=== PATIENT | male | born 1960 | race Two or more races ===

== ENCOUNTER 2021-07-05 11:29 | Emergency (ER) | payer MEDICAID, OTHER ==
[~2021-07-05] VITALS: Ht 182.9 cm; Wt 98.9 kg
[2021-07-05 11:30] VITALS: BP 125/95
[2021-07-05] MEDS ORDERED: IBUP800T27 PO ×2 (12:33→12:49)
[2021-07-05] MEDS ORDERED: CEPH-509 PO ×2 (12:33→12:49)
== END 2021-07-05 12:52 | disposition home or self-care (01) ==
LOC: ER 11:29
DX: S80.262A Insect bite (nonvenomous), left knee, initial encounter (principal); I10 Essential (primary) hypertension; E78.5 Hyperlipidemia, unspecified; Z79.1 Long term (current) use of non-steroidal anti-inflammatories (NSAID); Z79.899 Other long term (current) drug therapy; W57.XXXA Bitten or stung by nonvenomous insect and other nonvenomous arthropods, initial encounter; Y93.89 Activity, other specified; Y92.89 Other specified places as the place of occurrence of the external cause; Y99.8 Other external cause status
CPT/HCPCS: 73562

== ENCOUNTER 2021-08-30 15:58 | Inpatient (IN) | payer MEDICAID ==
[~2021-08-30] VITALS: Ht 182.9 cm; Wt 99.3 kg
[~2021-08-30 15:58] MED LIST: CEPH-509 PO; IBUP800T27 PO
[2021-08-30 16:31] LABS: Urine Bacteria NONE SEEN /hpf (None Seen); Urine Blood Negative /uL (Negative); Urine Hyaline Cast FEW /lpf (0 - 2); Urine Mucus FEW (None Seen); Urine Specific Gravity 1.025 (1.001-1.035); Urine WBC 2 /hpf (0 - 3)
[2021-08-30 16:47] LABS: Basophils # (auto) 0.1 10 ^3/uL (0-0.2); Eosinophils # (auto) 0.1 10 ^3/uL (0-0.8); Eosinophils % (auto) 1.1 % (0.0-7.0); Hemoglobin 14.7 g/dL (13.5-17.5); Lymphocytes # (auto) 1.2 10 ^3/uL (0.4-5.4); Lymphocytes % (auto) 17.6 % (10.0-50.0); Mean Corpuscular Hgb Conc. 32.6 g/dL (32.0-36.0); Mean Corpuscular Volume 92.1 fL (80.0-100.0); Monocytes # (auto) 0.4 10 ^3/uL (0-1.3); Monocytes % (auto) 6.4 % (0.0-12.0); Neutrophils # (auto) 5.1 10 ^3/uL (1.6-8.6); Neutrophils % (auto) 73.9 % (37.0-80.0); Red Blood Cells 4.89 10^6/uL (4.5-5.90); Red Cell Distribution Width 13.6 % (11.8-14.3); White Blood Cell 6.8 10^3/uL (4.4-10.8)
[2021-08-30] MEDS ORDERED: dilTIAZem 25 MG/5 ML VIAL IV ONE (17:00)
[2021-08-30] MEDS ORDERED: dilTIAZem 125mg/125ml BAG KIT 125 ML IV ONE (17:00)
[2021-08-30 17:03] LABS: BUN/Creatinine Ratio 15.5; Calcium 8.6 mg/dL (8.5-10.1)
[2021-08-30 17:06] LABS: Bilirubin, Total 1.5 mg/dL (0.2-1.0); Total Protein 6.7 g/dL (6.4-8.2)
[2021-08-30] MEDS ORDERED: dilTIAZem HCL 50 MG/10 ML VIAL IV ONE (17:15)
[2021-08-30] MEDS ORDERED: ONDANSETRON HCL 4 MG/2 ML VIAL IV PRN (18:30)
[2021-08-30] MEDS ORDERED: HYDROcodone-ACET 5/325MG TAB PO PRN (18:30)
[2021-08-30] MEDS ORDERED: MORPHINE SULFATE INJ 2 MG/ml SYRG IV PRN (18:30)
[2021-08-31] MEDS ORDERED: cloNIDine HCL 0.1 MG TAB PO ONE (00:15)
[2021-08-31 05:16] LABS: Basophils # (auto) 0 10 ^3/uL (0-0.2); Basophils % (auto) 0.4 % (0.0-2.0); Eosinophils # (auto) 0.1 10 ^3/uL (0-0.8); Eosinophils % (auto) 1.6 % (0.0-7.0); Hematocrit 41.1 % (41.0-53.0); Hemoglobin 13.7 g/dL (13.5-17.5); Lymphocytes # (auto) 1.4 10 ^3/uL (0.4-5.4); Lymphocytes % (auto) 20.5 % (10.0-50.0); Mean Corpuscular Hemoglobin 30.3 pg (28.0-32.0); Mean Corpuscular Hgb Conc. 33.2 g/dL (32.0-36.0); Mean Corpuscular Volume 91.2 fL (80.0-100.0); Monocytes # (auto) 0.5 10 ^3/uL (0-1.3); Monocytes % (auto) 7.7 % (0.0-12.0); Neutrophils # (auto) 4.9 10 ^3/uL (1.6-8.6); Neutrophils % (auto) 69.8 % (37.0-80.0); Nucleated Red Blood Cells % 0.1 %; Red Blood Cells 4.51 10^6/uL (4.5-5.90); Red Cell Distribution Width 13.5 % (11.8-14.3)
[2021-08-31 05:34] LABS: Albumin 3.5 g/dL (3.4-5.0); Calcium 8.4 mg/dL (8.5-10.1); Potassium 4.5 mmol/L (3.5-5.1)
[2021-08-31 05:40] LABS: BUN/Creatinine Ratio 15.6; Bilirubin, Total 1.3 mg/dL (0.2-1.0); Total Protein 6.1 g/dL (6.4-8.2)
[2021-08-31] MEDS ORDERED: dilTIAZem 25 MG/5 ML VIAL IV ONE (06:30)
[2021-08-31] MEDS ORDERED: FUROSEMIDE 40 MG/4 ML VIAL IV SCH ×2 (10:00→18:00)
[2021-08-31] MEDS ORDERED: CARVEDILOL 3.125 MG TAB PO SCH ×2 (10:00→15:45)
[2021-08-31] MEDS ORDERED: ENOXAPARIN SOD 40 MG/0.4 ML SYRINGE SC SCH (10:00)
[2021-08-31] MEDS ORDERED: AMIODARONE HCL 200 MG TAB PO SCH (10:00)
[2021-08-31] MEDS ORDERED: ATOR40TA52 PO (11:54)
[2021-08-31] MEDS ORDERED: CARV3.1240 PO (11:54)
[2021-08-31] MEDS ORDERED: TAMS1CAP25 PO (11:54)
[2021-08-31 12:34] VITALS: BP 127/96
[2021-08-31] MEDS ORDERED: CARVEDILOL 12.5 MG TAB PO ONE (16:00)
[2021-08-31] MEDS: TAMSULOSIN HYDROCHLORIDE 0.4 MG CAP PO SCH (17:56)
[2021-08-31 20:00] VITALS: BP 119/77
[2021-08-31] MEDS: AMIODARONE HCL 200 MG TAB PO SCH (21:20)
[2021-08-31] MEDS: APIXABAN 5 MG TAB PO SCH (21:20)
[2021-08-31 22:00] VITALS: BP 119/77
[2021-08-31] MEDS ORDERED: CARVEDILOL 12.5 MG TAB PO SCH (22:00)
[2021-08-31] MEDS ORDERED: ENOXAPARIN SOD 100 MG/1 ML SYRINGE SC SCH (22:00)
[2021-09-01 05:30] VITALS: BP 103/73
[2021-09-01] MEDS: FUROSEMIDE 40 MG/4 ML VIAL IV SCH ×2 (05:37→18:18)
[2021-09-01 09:00] VITALS: BP 106/81
[2021-09-01] MEDS: SPIRONOLACTONE 25 MG TAB PO SCH (11:30)
[2021-09-01] MEDS: APIXABAN 5 MG TAB PO SCH ×2 (11:30→21:52)
[2021-09-01] MEDS: AMIODARONE HCL 200 MG TAB PO SCH ×2 (11:30→21:53)
[2021-09-01] MEDS: DAPAGLIFLOZIN 5 MG TAB PO SCH (11:30)
[2021-09-01 12:51] VITALS: BP 117/87
[2021-09-01] MEDS ORDERED: ASPI-543 PO (15:19)
[2021-09-01 17:04] VITALS: BP 123/84
[2021-09-01] MEDS: TAMSULOSIN HYDROCHLORIDE 0.4 MG CAP PO SCH (18:17)
[2021-09-01] MEDS: PANTOPRAZOLE 40 MG TAB PO SCH (21:52)
[2021-09-01] MEDS: CARVEDILOL 3.125 MG TAB PO SCH (21:52)
[2021-09-01] MEDS: SUCRALFATE 1 GM TAB PO SCH (21:53)
[2021-09-01 22:00] VITALS: BP 97/66
[2021-09-02] VITALS (10 sets, daily range): BP systolic 111–138; BP diastolic 84–98
[2021-09-02] MEDS: FUROSEMIDE 40 MG/4 ML VIAL IV SCH ×2 (06:00→17:58)
[2021-09-02] MEDS: SUCRALFATE 1 GM TAB PO SCH ×4 (07:00→21:55)
[2021-09-02 07:09] LABS: INR 1.08 (0.9-1.15); Partial Thromboplastin Time 30.3 sec (24.6-33.4)
[2021-09-02] MEDS: CARVEDILOL 3.125 MG TAB PO SCH ×2 (10:00→21:57)
[2021-09-02] MEDS: AMIODARONE HCL 200 MG TAB PO SCH ×2 (10:00→21:56)
[2021-09-02] MEDS: SPIRONOLACTONE 25 MG TAB PO SCH (10:00)
[2021-09-02] MEDS: APIXABAN 5 MG TAB PO SCH ×2 (10:00→21:56)
[2021-09-02] MEDS: PANTOPRAZOLE 40 MG TAB PO SCH ×2 (10:00→21:55)
[2021-09-02] MEDS: DAPAGLIFLOZIN 5 MG TAB PO SCH (10:00)
[2021-09-02] MEDS ORDERED: IOHEXOL 350 MG/ML 100ML IJ ONE (15:13)
[2021-09-02] MEDS ORDERED: LIDOCAINE 2%HCL (LOCAL ANESTH.) INJ 10ml MDV ONE (15:13)
[2021-09-02] MEDS ORDERED: fentaNYL CITRATE 100 MCG/2 ML VL ONE (15:15)
[2021-09-02] MEDS ORDERED: ANGIOMAX 250 MG VIAL IV ONE (15:15)
[2021-09-02] MEDS ORDERED: SODIUM CHL 0.9% 0 ML ONE (15:16)
[2021-09-02] MEDS ORDERED: MIDAZOLAM HCL 2MG/2ML 2ml VIAL (1mg/ml) ONE ×2 (15:16→15:45)
[2021-09-02] MEDS: TAMSULOSIN HYDROCHLORIDE 0.4 MG CAP PO SCH (17:54)
[2021-09-03 05:00] VITALS: BP 116/79
[2021-09-03 05:57] LABS: Basophils # (auto) 0 10 ^3/uL (0-0.2); Basophils % (auto) 0.3 % (0.0-2.0); Eosinophils # (auto) 0.1 10 ^3/uL (0-0.8); Eosinophils % (auto) 0.9 % (0.0-7.0); Hematocrit 43.5 % (41.0-53.0); Hemoglobin 14.7 g/dL (13.5-17.5); Lymphocytes # (auto) 0.9 10 ^3/uL (0.4-5.4); Lymphocytes % (auto) 13.3 % (10.0-50.0); Mean Corpuscular Hemoglobin 30.8 pg (28.0-32.0); Mean Corpuscular Hgb Conc. 33.9 g/dL (32.0-36.0); Mean Corpuscular Volume 90.9 fL (80.0-100.0); Monocytes # (auto) 0.6 10 ^3/uL (0-1.3); Neutrophils # (auto) 5.3 10 ^3/uL (1.6-8.6); Neutrophils % (auto) 77.5 % (37.0-80.0); Red Blood Cells 4.79 10^6/uL (4.5-5.90); Red Cell Distribution Width 13.4 % (11.8-14.3); White Blood Cell 6.9 10^3/uL (4.4-10.8)
[2021-09-03 06:15] LABS: Albumin 3.6 g/dL (3.4-5.0); BUN/Creatinine Ratio 14.4; Calcium 8.9 mg/dL (8.5-10.1); Potassium 3.7 mmol/L (3.5-5.1)
[2021-09-03 06:18] LABS: Bilirubin, Total 1.5 mg/dL (0.2-1.0); Total Protein 6.6 g/dL (6.4-8.2)
[2021-09-03] MEDS: FUROSEMIDE 40 MG/4 ML VIAL IV SCH ×2 (06:46→18:18)
[2021-09-03] MEDS: SUCRALFATE 1 GM TAB PO SCH ×4 (06:46→22:30)
[2021-09-03 09:16] VITALS: BP 130/95
[2021-09-03] MEDS: AMIODARONE HCL 200 MG TAB PO SCH ×2 (10:10→22:30)
[2021-09-03] MEDS: APIXABAN 5 MG TAB PO SCH ×2 (10:11→22:31)
[2021-09-03] MEDS: SPIRONOLACTONE 25 MG TAB PO SCH (10:11)
[2021-09-03] MEDS: DAPAGLIFLOZIN 5 MG TAB PO SCH (10:11)
[2021-09-03] MEDS: PANTOPRAZOLE 40 MG TAB PO SCH ×2 (10:12→22:31)
[2021-09-03] MEDS: CARVEDILOL 3.125 MG TAB PO SCH ×2 (10:12→22:31)
[2021-09-03] MEDS: DOCUSATE SOD 100 MG CAP PO PRN ×2 (12:28→22:00)
[2021-09-03 13:04] VITALS: BP 114/76
[2021-09-03 16:46] VITALS: BP 112/73
[2021-09-03] MEDS: TAMSULOSIN HYDROCHLORIDE 0.4 MG CAP PO SCH (18:18)
[2021-09-03 22:00] VITALS: BP 121/76
[2021-09-04] MEDS: FUROSEMIDE 40 MG/4 ML VIAL IV SCH (06:03)
[2021-09-04] MEDS: SUCRALFATE 1 GM TAB PO SCH ×2 (06:03→12:29)
[2021-09-04 09:00] VITALS: BP 122/77
[2021-09-04] MEDS: AMIODARONE HCL 200 MG TAB PO SCH (10:25)
[2021-09-04] MEDS: APIXABAN 5 MG TAB PO SCH (10:25)
[2021-09-04] MEDS: DAPAGLIFLOZIN 5 MG TAB PO SCH (10:25)
[2021-09-04] MEDS: PANTOPRAZOLE 40 MG TAB PO SCH (10:26)
[2021-09-04] MEDS: CARVEDILOL 3.125 MG TAB PO SCH (10:26)
[2021-09-04] MEDS: SPIRONOLACTONE 25 MG TAB PO SCH (10:26)
[2021-09-04 13:00] VITALS: BP 113/78
[2021-09-04] MEDS ORDERED: SPIR25TA PO (16:46)
[2021-09-04] MEDS ORDERED: APIX5TAB PO (16:46)
[2021-09-04 17:00] VITALS: BP 115/82
[2021-09-04 17:04] VITALS: BP 113/78
[2021-09-05 10:08] LABS: Hepatitis B Surface Antibody Negative (Negative)
[2021-09-05 10:43] LABS: Hepatitis A Total Antibody Positive (Negative)
[2021-09-05 13:11] LABS: Hepatitis C Antibody Negative (Negative)
== END 2021-09-04 17:00 | disposition home or self-care (01) | DRG 192 ==
LOC: ER 15:58 → TELE 18:22 → TELE-WESTW 08-31 08:38
PROVIDERS: ADMIT Internal Medicine; ATTEND Internal Medicine Nephrology
PROC: 4A023N7 Measurement of Cardiac Sampling and Pressure, Left Heart, Percutaneous Approach (ICD-10-PCS; principal; 2021-09-02)
PROC: B2111ZZ Fluoroscopy of Multiple Coronary Arteries using Low Osmolar Contrast (ICD-10-PCS; 2021-09-02)
PROC: B2151ZZ Fluoroscopy of Left Heart using Low Osmolar Contrast (ICD-10-PCS; 2021-09-02)
PROC: B41C1ZZ Fluoroscopy of Pelvic Arteries using Low Osmolar Contrast (ICD-10-PCS; 2021-09-02)
PROC: 5A2204Z Restoration of Cardiac Rhythm, Single (ICD-10-PCS; 2021-09-02)
DX: I11.0 Hypertensive heart disease with heart failure (principal); N17.9 Acute kidney failure, unspecified; I42.0 Dilated cardiomyopathy; I50.23 Acute on chronic systolic (congestive) heart failure; R10.13 Epigastric pain; N40.0 Benign prostatic hyperplasia without lower urinary tract symptoms; E66.9 Obesity, unspecified; R07.89 Other chest pain; I48.91 Unspecified atrial fibrillation; Z20.822 Contact with and (suspected) exposure to COVID-19; Z68.20 Body mass index [BMI] 20.0-20.9, adult; Z80.42 Family history of malignant neoplasm of prostate
CPT/HCPCS: 36415; 71045; 74176; 75710; 76705; 80053; 81001; 83880; 84484; 85025; 85610; 85730; 86704; 86706; 86708; 86803; 87340; 92960; 93005; 93306; 93458; 96365; 96375; 99152; 99291; G0378; J2001; J2250; J2405

== ENCOUNTER → 2021-11-10 | Outpatient (CLI) | payer MEDICAID ==
[~2021-11-10] MED LIST changes: +APIX5TAB PO; +ASPI-543 PO; +ATOR40TA52 PO; +CARV3.1240 PO; -CEPH-509 PO; -IBUP800T27 PO; +SPIR25TA PO; +TAMS1CAP25 PO
== END | disposition home or self-care (01) ==
LOC: Rad HDHVI 15:42
PROVIDERS: ATTEND Internal Medicine
DX: I08.0 Rheumatic disorders of both mitral and aortic valves (principal); R06.02 Shortness of breath; I10 Essential (primary) hypertension
CPT/HCPCS: 93306

== ENCOUNTER → 2022-04-11 | Outpatient (CLI) | payer MEDICAID | END | disposition home or self-care (01) | LOC: Rad HDHVI 08:20 | PROVIDERS: ATTEND Internal Medicine | DX: I37.1 Nonrheumatic pulmonary valve insufficiency (principal); I11.9 Hypertensive heart disease without heart failure | CPT/HCPCS: 93306 ==